=== PATIENT | male | born 1995 | race African-American/Black ===

== ENCOUNTER 2017-12-29 03:19 | Inpatient (IN) | payer SELFPAY ==
[~2017-12-29] VITALS: Ht 175.3 cm; Wt 100.9 kg
[~2017-12-29 03:19] MED LIST: NAPR-677 PO
--- NOTE | 2017-12-29 03:25 | ED.ADGEN ---
Past History Past Medical History: No Pertinent History Past Surgical History: No Surgical History Alcohol Use: None Drug Use: None Adult General Chief Complaint Chief Complaint " My asthma is kicking up.. I am out of meds.. and gotten tight tonight..." HPI HPI Patient is a 22 year old male who presents with above hx and complaints of Asthma exacerbation. Pt. has had asthma since a child. Did have one admission to ICU as child. Pt. states he has not had an exacerbation for over a year. Pt has been exposed to sick son who is at [facility] currently. Pt. does not know his best peak flow. Pt. denies drug use, travel or new exposure. Review of Systems Review of Systems Constitutional: Denies fever or chills [] Eyes: Denies change in visual acuity, redness, or eye pain [] HENT: Denies nasal congestion or sore throat [] Respiratory: Denies cough or shortness of breath [] Cardiovascular: No additional information not addressed in HPI [] GI: Denies abdominal pain, nausea, vomiting, bloody stools or diarrhea [] : Denies dysuria or hematuria [] Musculoskeletal: Denies back pain or joint pain [] Integument: Denies rash or skin lesions [] Neurologic: Denies headache, focal weakness or sensory changes [] Endocrine: Denies polyuria or polydipsia [] All other systems were reviewed and found to be within normal limits, except as documented in this note. Family History Family History Son currently admitted to [facility] with respiratory infection Current Medications Current Medications Current Medications Medications (Trade) Dose Ordered Sig/Holly Start Time Stop Time Status Last Admin Dose Admin Acetaminophen (Tylenol) 1,000 mg 1X ONCE 12/29/17 04:15 12/29/17 04:16 DC Albuterol Sulfate (Ventolin Hfa) 2 puff 1X ONCE 12/29/17 04:00 12/29/17 04:01 DC 12/29/17 04:32 2 PUFF Albuterol/ Ipratropium (Duoneb) 3 ml RTQID 12/29/17 08:00 Azithromycin 250 mg/Sodium Chloride 250 ml @ 250 mls/hr DAILY 12/29/17 07:00 Ceftriaxone Sodium 1 gm/ Sodium Chloride 50 ml @ 100 mls/hr QHS 12/29/17 21:00 Ceftriaxone Sodium (Rocephin Im) 1 gm 1X ONCE 12/29/17 04:30 12/29/17 04:31 DC 12/29/17 05:17 1 GM Diphenhydramine HCl (Benadryl) 50 mg PRN QID PRN 12/29/17 06:15 Info (Do NOT chart on this entry -- for MONITORING) 1 each PRN DAILY PRN 12/29/17 04:30 12/31/17 04:29 Iohexol (Omnipaque 300 Mg/ml) 75 ml 1X ONCE 12/29/17 05:00 12/29/17 05:01 DC 12/29/17 05:16 75 ML Ketorolac Tromethamine (Toradol) 15 mg PRN BID PRN 12/29/17 06:15 01/03/18 06:14 Lactated Ringer's 1,000 ml @ 200 mls/hr Q5H 12/29/17 06:30 Lactobacillus Rhamnosus (Culturelle) 1 cap BID 12/29/17 09:00 Methylprednisolone Sodium Succinate (SOLU-Medrol 125MG VIAL) 125 mg QHS 12/29/17 21:00 Metronidazole 100 ml @ 100 mls/hr Q8HRS 12/29/17 07:00 Prednisone (Prednisone) 50 mg 1X ONCE 12/29/17 04:00 12/29/17 04:01 Cancel See nursing for home medications Allergies Allergies Allergies Coded Allergies Type Severity Reaction Last Updated Verified No Known Drug Allergies 06/18/16 No Physical Exam Physical Exam Constitutional: Well developed, well nourished, moderately acute distress, non- toxic appearance. [] Pt. spitting up saliva because he states his throat hurts HENT: Normocephalic, atraumatic, bilateral external ears normal, oropharynx moist, no oral exudates, nose rhinorrhea. Full tonsils. Eyes: PERRLA, EOMI, conjunctiva normal, no discharge. [] Neck: Normal range of motion, no tenderness, supple, no stridor. [] Adenopathy Cardiovascular:Heart rate regular rhythm, no murmur [] Lungs & Thorax: Bilateral breath sounds scattered wheezes throughout on auscultation []retractions. Tripod position. Abdomen: Bowel sounds normal, soft, no tenderness, no masses, no pulsatile masses. [] Skin: Warm, diaphoretic , no erythema, no rash. [] Back: No tenderness, no CVA tenderness. [] Extremities: No tenderness, no cyanosis, no clubbing, ROM intact, no edema. [] Neurologic: Alert and oriented X 3, normal motor function, normal sensory function, no focal deficits noted. [] Psychologic: Affect anxious, judgement normal, mood normal. [] Current Patient Data Vital Signs Vital Signs Date Time Temp Pulse Resp B/P (MAP) Pulse Ox O2 Delivery O2 Flow Rate FiO2 12/29/17 06:54 98.3 91 18 106/51 (69) 94 Room Air Lab Results Laboratory Tests Test 12/29/17 03:39 12/29/17 05:00 Group A Streptococcus Rapid Negative (NEGATIVE) White Blood Count 8.5 x10^3/uL (4.0-11.0) Red Blood Count 5.12 x10^6/uL (4.30-5.70) Hemoglobin 14.7 g/dL (13.0-17.5) Hematocrit 42.6 % (39.0-53.0) Mean Corpuscular Volume 83 fL (79-100) Mean Corpuscular Hemoglobin 29 pg (25-35) Mean Corpuscular Hemoglobin Concent 35 g/dL (31-37) Red Cell Distribution Width 13.7 % (11.5-14.5) Platelet Count 195 x10^3/uL (140-400) Neutrophils (%) (Auto) 40 % (31-73) Lymphocytes (%) (Auto) 48 % (24-48) Monocytes (%) (Auto) 11 % (0-9) H Eosinophils (%) (Auto) 0 % (0-3) Basophils (%) (Auto) 1 % (0-3) Neutrophils # (Auto) 3.4 x10^3uL (1.8-7.7) Lymphocytes # (Auto) 4.1 x10^3/uL (1.0-4.8) Monocytes # (Auto) 0.9 x10^3/uL (0.0-1.1) Eosinophils # (Auto) 0.0 x10^3/uL (0.0-0.7) Basophils # (Auto) 0.0 x10^3/uL (0.0-0.2) Segmented Neutrophils % 29 % (35-66) L Band Neutrophils % 6 % (0-9) Lymphocytes % 44 % (24-48) Monocytes % 3 % (0-10) Platelet Estimate Adequate (ADEQUATE) Prothrombin Time 12.2 SEC (9.4-11.4) H Prothrombin Time INR 1.2 (0.9-1.1) H PTT 29 SEC (23-33) Sodium Level 136 mmol/L (136-145) Potassium Level 3.2 mmol/L (3.5-5.1) L Chloride Level 101 mmol/L (98-107) Carbon Dioxide Level 29 mmol/L (21-32) Anion Gap 6 (6-14) Blood Urea Nitrogen 14 mg/dL (8-26) Creatinine 1.5 mg/dL (0.7-1.3) H Estimated GFR (Cockcroft-Gault) 70.8 Glucose Level 103 mg/dL (70-99) H Calcium Level 9.1 mg/dL (8.5-10.1) Heterophil Agglutinins Positive (NEGATIVE) EKG EKG My interpretation EKG shows a sinus tachycardia heart rate in the 115 bpm. No findings of acute IL with contralateral changes. Radiology/Procedures Radiology/Procedures My interpretation of chest x-ray shows some patchy infiltrates. But no large consolidation consistent with pneumonia. Normal cardiac silhouette. My interpretation CT of neck shows tonsillar and adenoid tissue fullness. May be a small abscess the base of tongue.[] Course & Med Decision Making Course & Med Decision Making Pertinent Labs and Imaging studies reviewed. (See chart for details) Discussed presentation, testing and treatment plan with Dr. Walker. Will admit for Asthma exacerbation, and pharyngitis. Suspect this is a viral presentation but will cover with antibiotics. [] Final Impression Final Impression 1. Asthma Exacerbation[] 2. Pharyngitis 3. Elevated Segs. 4. Hypokalemia 5. Elevated Creat. 6. Viral syndrome- Suspect Carson ( had neg. strept test) Dragon Disclaimer Dragon Disclaimer This electronic medical record was generated, in whole or in part, using a voice recognition dictation system. HORACIO AHN MD Dec 29, 2017 03:25
[2017-12-29] MEDS ORDERED: ALBUTEROL SULFATE 8GM INHALER. ONE (03:30)
[2017-12-29] MEDS ORDERED: IPRATRPIUM/ALBUTEROL 0.5/2.5MG 3 ML NEBU. ONE (03:30)
[2017-12-29] MEDS ORDERED: predniSONE 20 MG TABLET PO ONE (04:00)
[2017-12-29] MEDS ORDERED: IPRATRPIUM/ALBUTEROL 0.5/2.5MG 3 ML NEBU. NEB ONE ×2 (04:00→04:30)
[2017-12-29] MEDS ORDERED: ACETAMINOPHEN 500 MG TABLET PO ONE ×2 (04:00→04:15)
[2017-12-29] MEDS ORDERED: ALBUTEROL SULFATE 8GM INHALER. INH ONE (04:00)
[2017-12-29] MEDS ORDERED: CONTRAST GIVEN MC PRN (04:30)
[2017-12-29] MEDS ORDERED: methylPREDNISolone SOD SUCC PF 125 MG/2 ML VIAL. IV ONE (04:30)
[2017-12-29] MEDS ORDERED: cefTRIAXone IM 1 GM VIAL IM ONE (04:30)
[2017-12-29] MEDS ORDERED: IV RINGERS SOLUTION,LACTATED 1,000 ML IV SCH ×2 (04:30→06:30)
[2017-12-29] MEDS ORDERED: diphenhydrAMINE 50 MG/ML VIAL IVP ONE (04:30)
--- NOTE | 2017-12-29 04:39 | EKG ---
[address] [address] Test Date: 2017-12-29 Test Time: 04:33:06 Pat Name: LISA LOZA Department: Room: Gender: M Viner Operator: : 1995 Requested By: HORACIO AHN Order Number: [id number] Reading MD: Luis F Nixon MD Measurements Intervals [place] Rate: 115 P: 23 [place]: 162 QRS: 20 QRSD: 90 T: 9 QT: 300 QTc: 417 Interpretive Statements SINUS TACHYCARDIA NON-SPECIFIC ST/T CHANGES Electronically Signed On 12-29-2017 10:26:54 CDT by Luis F Nixon MD
[2017-12-29] MEDS ORDERED: IOHEXOL 300 MG/ML 75 ML VIAL. IV ONE (05:00)
[2017-12-29 05:20] LABS: BASO % 1 % (0-3); EOS % 0 % (0-3); HEMATOCRIT 42.6 % (39.0-53.0); HEMOGLOBIN 14.7 g/dL (13.0-17.5); LYMPH # 4.1 x10^3/uL (1.0-4.8); LYMPH % 48 % (24-48); MEAN CORPUSCULAR HEMOGLOBIN 29 pg (25-35); MEAN CORPUSCULAR HGB CONC 35 g/dL (31-37); MEAN CORPUSCULAR VOLUME 83 fL (79-100); MONO # 0.9 x10^3/uL (0.0-1.1); MONO % 11 % (0-9); NEUT # 3.4 x10^3uL (1.8-7.7); NEUT % 40 % (31-73); PLATELET COUNT 195 x10^3/uL (140-400); RED BLOOD COUNT 5.12 x10^6/uL (4.30-5.70); RED CELL DISTRIBUTION WIDTH 13.7 % (11.5-14.5); WHITE BLOOD COUNT 8.5 x10^3/uL (4.0-11.0)
[2017-12-29 05:27] LABS: CALCIUM 9.1 mg/dL (8.5-10.1); CREATININE 1.5 mg/dL (0.7-1.3); GFR 70.8; POTASSIUM 3.2 mmol/L (3.5-5.1)
[2017-12-29 05:43] LABS: % BANDS 6 % (0-9); % LYMPHS 44 % (24-48); % MONOS 3 % (0-10); % SEGS 29 % (35-66); PLT ESTIMATE ADEQUATE (ADEQUATE)
--- NOTE | 2017-12-29 06:00 | RAD ---
Chest PA and lateral: Reason for examination: Dyspnea. Neck pain with fullness. Difficulty swallowing. Stridor. The heart size is normal. Mediastinum is unremarkable. Lung ingram are clear. Note is made of an azygos lobe. No acute bony abnormalities are seen. Impression: No acute cardiopulmonary disease. CT soft tissue neck: Helical images were obtained through the neck with intravenous administration of 75 cc Omnipaque 300. Reconstruction was performed in sagittal and coronal planes. Exposure: One or more of the following individualized dose reduction techniques were utilized for this examination: 1. Automated exposure control 2. Adjustment of the mA and/or kV according to patient size 3. Use of iterative reconstruction technique. No abnormalities are seen in the visualized portions of the paranasal sinuses or mastoid air cells. The vallecula and piriform sinuses are symmetric. There does appear to be soft tissue fullness in the tonsillar and adenoidal tissues. Vocal cords are symmetric. The proximal portion of the trachea visualized shows no stenosis. No abnormality seen in the visualized portion of the esophagus. The thyroid gland shows no abnormality. There is a small 4.6 mm cystic-appearing structure on the right near the base of the tongue. This could represent a small abscess. There is no other parapharyngeal or retropharyngeal abscess evident. No abnormality seen at the parotid or submandibular glands. There is adenopathy present bilaterally in the neck with no necrotic lymph nodes evident. Vascular structures appear to show normal vascular flow. The lung apices are clear. No acute bony abnormalities are seen in the cervical spine. IMPRESSION: Soft tissue fullness in the tonsillar and adenoidal tissues. Small 4.6 mm cystic-appearing structure on the right near the base of the tongue and a small abscess cannot be excluded. Adenopathy in the neck. Electronically signed by: Ely Kaur MD (12/29/2017 5:56 AM) [facility] [place]3
[2017-12-29] MEDS ORDERED: KETOROLAC 15 MG/ML VIAL. IV PRN (06:15)
[2017-12-29] MEDS ORDERED: diphenhydrAMINE 50 MG/ML VIAL IV PRN (06:15)
[2017-12-29 06:26] LABS: MONONUCLEOSIS PATIENT POSITIVE (NEGATIVE)
[2017-12-29] MEDS ORDERED: AZITHROMYCIN 250 MG in IV NORMAL SALINE 250ML 250 ML IV SCH (07:00)
[2017-12-29] MEDS: IPRATRPIUM/ALBUTEROL 0.5/2.5MG 3 ML NEBU. NEB SCH ×2 (08:00→09:26)
[2017-12-29 08:48] VITALS: BP 108/70
[2017-12-29] MEDS ORDERED: LACTOBACILLUS RHAMNOSUS GG 1 CAPSULE. PO SCH (09:00)
[2017-12-29] MEDS ORDERED: POTASSIUM CHLORIDE 20 MEQ TABLET.ER. PO ONE (10:00)
[2017-12-29] MEDS ORDERED: CEFP200T PO (12:59)
--- NOTE | 2017-12-29 14:01 | SSS ---
ADMIT DATE: 12/29/2017 HISTORY OF PRESENT ILLNESS: The patient is a 22-year-old male patient who came to the Emergency Room complaining that his asthma is kicking up and that he is out of his medication and his chest is tight. He apparently has asthma since childhood. He stated that he did require admission to the ICU and intubation as a child, but none since then. He stated that his son is sick and he is currently at [facility]. He was extensively investigated in the Emergency Room. Has had lab work which showed that his total white cell count was normal at 8500. However, he has marked lymphocytosis. He has also mildly impaired kidney function, creatinine 1.5. He did have a chest x-ray and a CT scan of the soft tissue of the neck, which showed that there is a small 4.6 mm cystic appearing structure on the right near the base of the tongue and a small abscess cannot be excluded adenopathy in the neck. His chest x-ray showed that the heart size is normal. Mediastinum is unremarkable. Lung ingram are clear. Note is made of an azygous os lobe. No acute bony abnormalities are seen. The patient was treated with IV antibiotic as well as steroids and azithromycin. He was given IV diphenhydramine at 50 mg and the patient was extremely sedated and difficult to arouse. PAST MEDICAL HISTORY: Significant for bronchial asthma since childhood. PAST SURGICAL HISTORY: Unremarkable. ALLERGIES: He has no known drug allergies. MEDICATIONS: He was on [id number] naproxen 500 mg twice a day. He ran out of all his inhalers. FAMILY HISTORY: He has 2 brothers and 1 sister, all of them younger and healthy. His father is alive in his 40s and mother in her 40s also, both healthy. SOCIAL HISTORY: He is unemployed. He does not smoke, drink alcohol, or use recreational drugs. He is planning to join the . REVIEW OF SYSTEMS: The patient denied any blurring of vision, cataract, glaucoma, or macular degeneration. Denied any earache, tinnitus, or sensorineural deafness. Denied any nosebleeds, stuffy nose, or postnasal drip. Denied any sore throat, sore tongue, toothache, hoarseness of voice, or difficulty swallowing. Denied any nausea or vomiting. Denied any diarrhea or constipation. Denied any hematemesis, melena, or hematochezia. Denied any dysuria, frequency, or hematuria. Denied any chest pain, shortness of breath, orthopnea, or paroxysmal nocturnal dyspnea. Denied any cough, phlegm, or hemoptysis. PHYSICAL EXAMINATION: GENERAL: On examining him, he looked well and was clearly in no apparent respiratory distress. There is no pallor, jaundice, cyanosis, or thyromegaly. No jugular venous distention. No limb edema. VITAL SIGNS: His heart rate was 82, blood pressure was 108/70, temperature was 98.2, respiratory rate 20, and oxygen saturation was 97%. HEAD, EYES, EARS, NOSE, AND THROAT: Showed normocephalic, atraumatic. NECK: Supple. HEART: Showed normal first and second heart sounds. No gallop, rub, or murmur. CHEST: Showed central trachea, equal bilateral expansion and air entry. No crepitation or rhonchi. ABDOMEN: Distended, soft, nontender. No guarding or rigidity. No organomegaly. Hernial orifice intact. Bowel sounds normal. NEUROLOGIC: He was sleepy, but arousable. He was lying slightly propped up. He opens his eyes, tracks and responds appropriately. All his cranial nerves are intact. EXTREMITIES: He moves extremities without difficulty. He ambulates without assistance or assistive devices. LABORATORY DATA: His lab work showed a white cell count of 8500, hemoglobin 15, hematocrit 43, MCV 83 and platelet count of 195,000. The manual differential showed 29% polymorphs and 44% lymphocytes. His chemistry showed serum sodium 136, potassium 3.2, bicarbonate 29, anion gap of 6, BUN 14, creatinine 1.5, estimated GFR was 71 mL per minute. His glucose was 103, calcium was 9.1. His prothrombin time was 12.2, INR 1.2, APTT was 29. Her group A streptococcus rapid negative. His heterophile agglutination was consistent with mononucleosis type picture. PLAN: Obviously, as his chest x-ray is unremarkable and clinically he has no evidence of any asthma exacerbation, the patient can be discharged to be treated symptomatically. I do not think he needs any antibiotics for his viral tonsillitis. JUAN MANUEL BEASLEY MD DR: SCOTTY/indy JOB#: [id number] / [id number]
[2017-12-29 14:54] LABS: CREATININE 1.4 mg/dL (0.7-1.3); GFR 76.7; POTASSIUM 4.1 mmol/L (3.5-5.1)
[2017-12-29] MEDS ORDERED: ALBU8.5H8 INH (15:03)
[2017-12-29] MEDS ORDERED: methylPREDNISolone SOD SUCC PF 125 MG/2 ML VIAL. IV SCH (21:00)
== END 2017-12-29 16:05 | disposition home or self-care (01) | DRG 866 ==
LOC: ER 03:19 → 1 SOUTH 04:30
PROVIDERS: ADMIT Internal Medicine; ATTEND Internal Medicine
DX: B27.90 Infectious mononucleosis, unspecified without complication (principal); D72.820 Lymphocytosis (symptomatic); J45.909 Unspecified asthma, uncomplicated; B34.9 Viral infection, unspecified; N28.9 Disorder of kidney and ureter, unspecified; K14.0 Glossitis; R59.9 Enlarged lymph nodes, unspecified
CPT/HCPCS: 36415; 70491; 71046; 80048; 85007; 85025; 85610; 85730; 86308; 87040; 87070; 87880; 93005; 94640; 96361; 96365; 96372; 96375; J0696; J1200; J2930; J3490; J7120; J7620; Q9967; 99285-25